=== PATIENT | female | born 1990 | race Two or more races ===

== ENCOUNTER 2016-11-26 21:30 | Emergency (ER) | payer OTHER ==
[~2016-11-26] VITALS: Ht 167.6 cm; Wt 52.2 kg
--- NOTE | 2016-11-26 22:19 | NUR ---
Pt to room, awaiting MD tipton. Pt speaking full sentences. Resp even and unlabored. Resting in position of comfort for self
--- NOTE | 2016-11-26 22:36 | NUR ---
Pt became tearful and highly anxious. Stating "it hurts to pee, i cant pee and they said they would put a tube up there. It hurts really bad. Now I cant breath, I want my boyfriend. I just cant be in that room." Pt moved to individual room with boyfriend at bedside. Attempting calming measures. Awaiting MD tipton.
--- NOTE | 2016-11-26 22:39 | NUR ---
Dr. Doyle at bedside for MSE
[2016-11-26] MEDS ORDERED: LORAZEPAM 2 MG/1 ML VIAL IV ONE (23:00)
[2016-11-26] MEDS ORDERED: IV NORMAL SALINE 1000 ML BAG IV ONE (23:00)
[2016-11-26] MEDS ORDERED: ONDANSETRON 4 MG/2 ML VIAL IV ONE ×2 (23:00→23:30)
--- NOTE | 2016-11-26 23:21 | NUR ---
IV established, labs drawn and sent. Pt medicated for anxiety, will monitor for effects of medication. Fluid bolus infusing freely to gravity. Pt resting in position of comfort for self.
[2016-11-26 23:25] LABS: BASOPHILS # (AUTO) 0.1 K/uL (0.0-8.0); BASOPHILS % (AUTO) 0.5 % (0.0-2.0); EOSINOPHILS # (AUTO) 0.3 K/uL (0.0-0.7); EOSINOPHILS % (AUTO) 3.1 % (0.0-7.0); HEMATOCRIT 44.7 % (37-47); HEMOGLOBIN 15.2 G/DL (12.0-16.0); LYMPHOCYTES # (AUTO) 3.9 K/UL (0.8-4.8); LYMPHOCYTES % (AUTO) 37.7 % (20.5-51.5); MEAN CORPUSCULAR HEMOGLOBIN 30.7 UUG (27.0-31.0); MEAN CORPUSCULAR HGB CONC 34 g/dL (32.0-37.0); MEAN CORPUSCULAR VOLUME 90.1 FL (81.0-99.0); MONOCYTES # (AUTO) 0.9 K/UL (0.1-1.30); MONOCYTES % (AUTO) 9.1 % (0.0-11.0); NEUTROPHILS # (AUTO) 5.1 K/UL (1.8-8.9); NEUTROPHILS % (AUTO) 49.6 % (38.5-71.5); PLATELET COUNT (AUTO) 282 K/UL (150-450); RED BLOOD CELL COUNT(AUTO) 4.96 MIL/UL (4.2-5.4); WHITE BLOOD COUNT (AUTO) 10.3 K/UL (4.0-11.2)
[2016-11-26] MEDS ORDERED: LORAZEPAM 2 MG/1 ML VIAL ONE (23:25)
[2016-11-26] MEDS ORDERED: ONDANSETRON 4 MG/2 ML VIAL ONE ×2 (23:25→23:44)
[2016-11-26 23:27] LABS: CREATININE 0.8 mg/dL (0.6-1.3); POTASSIUM 3.6 mmol/L (3.5-5.1)
[2016-11-26] MEDS ORDERED: MORPHINE SULFATE 4 MG/1 ML DISP.SYRIN IV ONE (23:30)
--- NOTE | 2016-11-26 23:38 | NUR ---
Pt requested pain medication. MD notified and pt medicated, will monitor for effects of medication. U/S at bedside.
[2016-11-26] MEDS ORDERED: MORPHINE SULFATE 4 MG/1 ML DISP.SYRIN ONE (23:44)
--- NOTE | 2016-11-27 | NUR ---
Pt less tearful, appears more calm. Pt ambulated to br with steady gait. UA collected and sent.
[2016-11-27 00:12] LABS: *BILIRUBIN,URIN NEGATIVE (NEGATIVE); *BLOOD, URINE NEGATIVE (NEGATIVE); *CLARITY,URINE CLEAR (CLEAR); *COLOR,URINE YELLOW (YELLOW); *KETONES,URINE NEGATIVE (NEGATIVE); *PROTEIN,URINE NEGATIVE (NEGATIVE); *UROBILINOGEN,URINE 0.2 E.U./dl (NORMAL); LEUKOCYTE ESTERASE ,URINE NEGATIVE (NEGATIVE); NITRITE, URINE NEGATIVE (NEGATIVE); PH,URINE 8.5 (5.0-8.0); UGLUCOSE NEGATIVE (NEGATIVE)
[2016-11-27 00:20] LABS: BACTERIA,URINE NONE SEEN /HPF (NONE SEEN); RBC,URINE 0-3 /HPF (0-3); SQUAMOUS EPITHELIAL CELL,UR MODERATE /HPF (NONE SEEN); WBC,URINE 0-3 /HPF (0-3)
[2016-11-27] MEDS ORDERED: IOHEXOL 300MG/ML 100 ML INFUS..BTL ONE (00:48)
[2016-11-27] MEDS ORDERED: IV NORMAL SALINE 250 ML IV ONE (00:48)
--- NOTE | 2016-11-27 01:00 | NUR ---
Pt not wanting to have CT done. Pt wanting to leave AMA. informed. IV dc'd, catheter intact. drsg applied. No problems noted to site. Pt given ACI and AMA paperwork. Pt wheeled out of er via w/c with ride home.
[2016-11-27 01:39] VITALS: BP 96/58
== END 2016-11-27 01:00 | disposition left against medical advice (07) ==
LOC: ER 22:08
DX: F41.9 Anxiety disorder, unspecified (principal); F32.9 Major depressive disorder, single episode, unspecified; R10.2 Pelvic and perineal pain; R10.9 Unspecified abdominal pain
CPT/HCPCS: 36415; 76856; 80048; 81001; 84703; 85025; 93005; 96361; 96374; 96375; 99285; A4663; J2060; J2270; J2405 ×2; J7030; J7050; Q9967